=== PATIENT | female | born 1980 | race Caucasian/White ===

== ENCOUNTER 2018-02-02 07:33 | Emergency (ER) | payer OTHER ==
[2018-02-02 09:09] VITALS: BP 126/78
--- NOTE | 2018-02-02 10:21 | ED ---
Lower Extremity - HPI Summary HPI Summary: Patient is a 37-year-old female presenting to the ED with an injury to the left foot during yoga. She states she hit the little toe onto the floor. She injured this toe previously, however after this morning's injury, she has been having difficulty bearing weight and ambulating. Denies any numbness or tingling, denies any ecchymosis or erythema. - History of Current Complaint Chief Complaint: EDExtremityLower Stated Complaint: LT FOOT INJURY Time Seen by Provider: 02/02/18 07:46 Hx Obtained From: Patient Mechanism Of Injury: Blunt Trauma Onset of Pain: Minutes Pain Intensity: 1 Pain Scale Used: 0-10 Numeric Location: Is Discrete @ - left lateral foot with associated small toe Character Of Pain: Aching Associated Signs And Symptoms: Negative: Swelling, Redness, Bruising Aggravating Factor(s): Standing, Ambulation Alleviating Factor(s): Rest - Risk Factors Gout Risk Factors: Negative DVT Risk Factors: Negative Septic Arthritis Risk Factor: Negative - Allergies/Home Medications Allergies/Adverse Reactions: Allergies Allergy/AdvReac Type Severity Reaction Status Date / Time No Known Allergies Allergy Verified 02/02/18 07:40 Home Medications: Home Medications NK [No Home Medications Reported] 02/02/18 [History Confirmed 02/02/18] PMH/Surg Hx/FS Hx/Imm Hx Previously Healthy: Yes Endocrine/Hematology History: Denies: Hx Diabetes Cardiovascular History: Denies: Hx Hypertension, Hx Pacemaker/ICD History: Denies: Hx Renal Disease Sensory History: Denies: Hx Hearing Aid Psychiatric History: Denies: Hx Panic Disorder - Surgical History Surgery Procedure, Year, and Place: HERNIA - A CHILD. [facility]. 2 C SECTION - TUBAL LIGATION W/ SECOND C SECTION. [facility] - GANGLION CYST REMOVED - Immunization History Hx Pertussis Vaccination: No Immunizations Up to Date: Yes Infectious Disease History: No Infectious Disease History: Denies: Traveled Outside the [place] in Last 30 Days - Social History Occupation: Employed Full-time Lives: With Family Alcohol Use: Occasionally Hx Substance Use: No Substance Use Type: Reports: None Hx Tobacco Use: No Smoking Status (MU): Never Smoked Tobacco Review of Systems Constitutional: Negative Negative: Fever, Chills, Skin Diaphoresis Negative: Palpitations, Chest Pain Negative: Shortness Of Breath, Cough Genitourinary: Negative Positive: no symptoms reported, see HPI Positive: Arthralgia Skin: Negative Neurological: Negative All Other Systems Reviewed And Are Negative: Yes Physical Exam Triage Information Reviewed: Yes Vital Signs On Initial Exam: Initial Vitals Temp Pulse Resp BP Pulse Ox 97.4 F 70 16 148/81 100 02/02/18 07:38 02/02/18 07:38 02/02/18 07:38 02/02/18 07:38 02/02/18 07:38 Vital Signs Reviewed: Yes Appearance: Positive: Well-Appearing, Well-Nourished Skin: Positive: Warm, Skin Color Reflects Adequate Perfusion Head/Face: Positive: Normal Head/Face Inspection Eyes: Positive: EOMI, KARL, Conjunctiva Clear Neck: Positive: Supple, No Lymphadenopathy Respiratory/Lung Sounds: Positive: Clear to Auscultation, Breath Sounds Present Cardiovascular: Positive: RRR, Pulses are Symmetrical in both Upper and Lower Extremities Musculoskeletal: Positive: Normal, Strength/ROM Intact, Pain @ - left lateral foot with associated left small toe pain Neurological: Positive: Sensory/Motor Intact, Alert, Oriented to Person Place, Time, Speech Normal Psychiatric: Positive: Normal, Affect/Mood Appropriate AVPU Assessment: Alert Diagnostics - Vital Signs Vital Signs Temp Pulse Resp BP Pulse Ox 02/02/18 09:06 97.6 F 62 14 126/78 100 02/02/18 07:38 97.4 F 70 16 148/81 100 - Laboratory Lab Statement: Any lab studies that have been ordered have been reviewed, and results considered in the medical decision making process. Lower Extremity Course/Dx - Course Course Of Treatment: On I bases during the course of treatment, the patient is evaluated for left foot injury. She is endorsing pain on palpation of the fourth and little toes as well as the lateral aspect of the foot. Denies any ecchymosis. Denies any erythema, swelling, numbness or tingling. X-ray obtained which shows a distal phalanx fracture of the little toe. Shabbir tape to the fourth and little to with good effect. Patient remains ambulatory. She' ll follow-up with orthopedics if symptoms persist or worsen. She will have the Shabbir tape on for approximate 4-6 weeks. - Diagnoses Provider Diagnoses: Phalanx, distal fracture of finger Discharge - Sign-Out/Discharge Documenting (check all that apply): Patient Departure - Discharge Plan Condition: Stable Disposition: HOME Patient Education Materials: Toe Fracture (ED) Referrals: Kodak Kerr MD [Medical Doctor] - Homer Carmen MD [Primary Care Provider] - Additional Instructions: Shabbir tape x 4-6 weeks or until symptoms improve Follow up with ortho if symptoms worsen - Billing Disposition and Condition Condition: STABLE Disposition: Home
== END 2018-02-02 09:06 | disposition home or self-care (01) ==
LOC: ED 07:33
DX: S92.515A Nondisplaced fracture of proximal phalanx of left lesser toe(s), initial encounter for closed fracture (principal); W21.9XXA Striking against or struck by unspecified sports equipment, initial encounter; Y93.42 Activity, yoga; Y92.9 Unspecified place or not applicable
CPT/HCPCS: 99281